=== PATIENT | female | born 1960 | race Caucasian/White ===

== ENCOUNTER → 2016-06-11 | Outpatient (CLI) | payer OTHER, MEDICARE ==
[2015-12-26 10:13] VITALS: BP 115/82
[~2016-06-11] MED LIST: ALBU2.5V13 NEB; ATOR40TA59 PO; BIOT25005 PO; BUPR1PAT2 TP; CYCL10TA2 PO; DICL75TA PO; DOCU-27 PO; DOCU100C PO; DULO30CA2 PO; ESTR1TAB15 PO; FLUT1DIS3 IH; FURO20TA3 PO; GABA-585 PO; HYDR-2762 PO; IPRA4AER IH; OMEP40CA5 PO; OXYC-244 PO; OXYC-250 PO; OXYC-323 PO; PARO20TA2 PO; PARO30TA2 PO; POTA20TA4 PO; PREG150C PO; PREG50CA PO; SENN1TAB70 PO; TIZA4CAP3 PO; TRAM50TA PO; ZOLP10TA PO; ZOLP10TA4 PO
[2016-06-11 12:23] LABS: CALCIUM 8.9 mg/dL (8.5-10.1); CREATININE 0.7 mg/dL (0.6-1.0); GFR 86.6; MAGNESIUM 2.2 mg/dL (1.8-2.4); POTASSIUM 4.5 mmol/L (3.5-5.1)
--- NOTE | 2016-06-13 10:39 | RAD ---
Exam: PA and lateral chest radiograph History: COPD, sweating, hyperlipidemia. Comparison: 02/06/2016. Findings: Cardiomediastinal silhouette is within normal limits for size. Bilateral lung mancera are free of focal infiltrate. No pleural effusion is seen. Cervicothoracic junction demonstrates spinal fusion hardware. Impression: No acute cardiopulmonary process.
== END | disposition home or self-care (01) ==
LOC: RAD 11:43
PROVIDERS: ATTEND Internal Medicine Cardiovascular Disease
DX: I10 Essential (primary) hypertension (principal); I51.89 Other ill-defined heart diseases; E78.2 Mixed hyperlipidemia; J44.9 Chronic obstructive pulmonary disease, unspecified
CPT/HCPCS: 36415; 71020; 80048; 83735; 86141

== ENCOUNTER → 2016-11-04 | Outpatient (CLI) | payer OTHER, MEDICARE ==
[2015-12-26 10:13] VITALS: BP 115/82
[~2016-11-04] MED LIST changes: -ALBU2.5V13 NEB; +ALBU2.5V14 NEB; -PARO20TA2 PO; +PARO20TA3 PO; -PARO30TA2 PO; +PARO30TA3 PO
--- NOTE | 2016-11-04 16:17 | RAD ---
Indication chronic pain. AP oblique and lateral views of both feet were obtained. Views of the right foot demonstrate normal mineralization. No acute finding is seen. There are no significant degenerative changes. Views of the left foot also demonstrate normal mineralization. No significant degenerative changes are seen and no acute finding is apparent IMPRESSION: Normal plain films of both feet
--- NOTE | 2016-11-04 16:29 | RAD ---
Indication chronic pain. AP oblique and lateral views of both hands were obtained. Views of the left hand demonstrate normal bony mineralization. Significant degenerative changes are not seen. No definite erosions are seen. Views of the right hand also appear unremarkable showing no evidence of significant degenerative change or erosions. No acute finding is seen. IMPRESSION: Normal plain films of the hands
== END | disposition home or self-care (01) ==
LOC: RAD 14:25
PROVIDERS: ATTEND Internal Medicine Cardiovascular Disease
DX: M25.542 Pain in joints of left hand (principal); M25.541 Pain in joints of right hand; G89.29 Other chronic pain; R53.1 Weakness
CPT/HCPCS: 73130; 73630

== ENCOUNTER → 2017-02-20 | Outpatient (CLI) | payer OTHER, MEDICARE ==
[2015-12-26 10:13] VITALS: BP 115/82
[~2017-02-20] MED LIST changes: -BIOT25005 PO; +BIOT25006 PO; -BUPR1PAT2 TP; +BUPR1PAT8 TP; +DOCU-109 PO; +DOCU-150 PO; -DOCU-27 PO; -DOCU100C PO; -OXYC-244 PO; -OXYC-250 PO; +OXYC-327 PO; +OXYC-328 PO
[2017-02-20 13:40] LABS: BASO % 0 % (0-3); EOS % 0 % (0-3); HEMATOCRIT 44.6 % (36.0-47.0); LYMPH # 2.3 x10^3/uL (1.0-4.8); LYMPH % 27 % (24-48); MEAN CORPUSCULAR HEMOGLOBIN 32 pg (25-35); MEAN CORPUSCULAR HGB CONC 34 g/dL (31-37); MEAN CORPUSCULAR VOLUME 96 fL (79-100); MONO % 8 % (0-9); NEUT % 65 % (31-73); PLATELET COUNT 292 x10^3/uL (140-400); RED BLOOD COUNT 4.65 x10^6/uL (3.50-5.40); RED CELL DISTRIBUTION WIDTH 14.5 % (11.5-14.5); WHITE BLOOD COUNT 8.6 x10^3/uL (4.0-11.0)
[2017-02-20 13:58] LABS: ALBUMIN 3.8 g/dL (3.4-5.0); ALBUMIN/GLOBULIN RATIO 0.9 (1.0-1.7); CALCIUM 9.6 mg/dL (8.5-10.1); CREATININE 0.8 mg/dL (0.6-1.0); GFR 74.2; POTASSIUM 4.4 mmol/L (3.5-5.1); TOTAL BILIRUBIN 0.5 mg/dL (0.2-1.0); TOTAL PROTEIN 8.2 g/dL (6.4-8.2)
[2017-02-20 13:59] LABS: CHOLESTEROL/HDL RATIO 2.4
== END | disposition home or self-care (01) ==
LOC: LAB 13:20
PROVIDERS: ATTEND Internal Medicine Cardiovascular Disease
DX: I51.89 Other ill-defined heart diseases (principal); E78.2 Mixed hyperlipidemia; R00.2 Palpitations
CPT/HCPCS: 36415; 80053; 80061; 85025; 86141

== ENCOUNTER → 2017-12-02 | Outpatient (CLI) | payer MEDICARE, MEDICAID ==
[2017-12-02] MEDS: GADOBUTROL 7.5 MMOL/7.5 ML VIAL IV (15:20)
== END | disposition home or self-care (01) ==
LOC: MRI 14:12
DX: M51.36 Other intervertebral disc degeneration, lumbar region (principal); M48.07 Spinal stenosis, lumbosacral region; E78.2 Mixed hyperlipidemia; I10 Essential (primary) hypertension; E11.9 Type 2 diabetes mellitus without complications
CPT/HCPCS: 72158; A9585

== ENCOUNTER → 2018-02-16 | Outpatient (CLI) | payer MEDICARE, MEDICAID ==
[2015-12-26 10:13] VITALS: BP 115/82
--- NOTE | 2018-02-16 16:26 | RAD ---
3 views left ankle study Clinical indications: Patient has fallen multiple times starting at the end of December 2017. Left ankle pain. FINDINGS: Medial soft tissue swelling is seen. No acute fracture or dislocation or osteolytic process is evident. The mortise ankle joint is intact. IMPRESSION: No acute fracture. Electronically signed by: Sabino Mckinney MD (02/16/2018 4:23 PM) [facility]
== END | disposition home or self-care (01) ==
LOC: RAD 09:56
PROVIDERS: ATTEND Anesthesiology Pain Medicine
DX: R22.42 Localized swelling, mass and lump, left lower limb (principal); I10 Essential (primary) hypertension; E11.9 Type 2 diabetes mellitus without complications; J44.9 Chronic obstructive pulmonary disease, unspecified; Z90.710 Acquired absence of both cervix and uterus; Z91.81 History of falling
CPT/HCPCS: 73610

== ENCOUNTER → 2018-02-20 | Outpatient (CLI) | payer MEDICARE, MEDICAID ==
[2015-12-26 10:13] VITALS: BP 115/82
[~2018-02-20] MED LIST changes: +BARIUM SULFATE 60% 355 ML SUSP PO ONE
--- NOTE | 2018-02-20 11:46 | RAD ---
Small bowel series, 02/20/2018: HISTORY: Diarrhea The preliminary abdominal image demonstrates a nonspecific gas pattern. Surgical clips in the right upper quadrant suggesting previous cholecystectomy. Lower pelvic calcifications are probably phleboliths. Serial digital images and fluoroscopic spot films were obtained following oral ingestion of liquid barium. 0.5 minutes of fluoroscopy time was utilized. 3 fluoroscopic spot images were recorded. The small bowel loops are of normal caliber with no evidence of thickening of their folds. There is normal transit of the barium through the small bowel into the colon. The terminal ileum is unremarkable. IMPRESSION: No significant small bowel abnormality is detected. Electronically signed by: Piyush Redman MD (02/20/2018 11:43 AM) [facility]
== END | disposition home or self-care (01) ==
LOC: RAD 07:38
PROVIDERS: ATTEND Internal Medicine Gastroenterology
DX: R19.7 Diarrhea, unspecified (principal); E78.2 Mixed hyperlipidemia; I10 Essential (primary) hypertension; E11.9 Type 2 diabetes mellitus without complications; J44.9 Chronic obstructive pulmonary disease, unspecified; Z87.891 Personal history of nicotine dependence; Z90.710 Acquired absence of both cervix and uterus
CPT/HCPCS: 74250

== ENCOUNTER 2018-02-27 15:05 | Emergency (ER) | payer MEDICARE, MEDICAID ==
[~2018-02-27] VITALS: Ht 170.2 cm; Wt 73.9 kg
[~2018-02-27 15:05] MED LIST changes: -BARIUM SULFATE 60% 355 ML SUSP PO ONE
[2018-02-27] MEDS ORDERED: DEXAMETHASONE SOD PHOS 20 MG/5 ML VIAL. IM ONE (16:15)
[2018-02-27] MEDS ORDERED: diazePAM 5 MG TABLET PO ONE (16:15)
[2018-02-27] MEDS ORDERED: MORPHINE SULFATE 10 MG/ML VIAL. IM ONE (16:15)
[2018-02-27] MEDS ORDERED: KETOROLAC 60 MG/2 ML INJ. IM ONE (16:15)
[2018-02-27] MEDS ORDERED: DEXAMETHASONE SOD PHOS 20 MG/5 ML VIAL. IV ONE (16:30)
[2018-02-27] MEDS ORDERED: MORPHINE SULFATE 10 MG/ML VIAL. IV ONE (16:30)
[2018-02-27] MEDS ORDERED: KETOROLAC 30 MG/ML VIAL. IV ONE (16:30)
--- NOTE | 2018-02-27 16:52 | PHYS DOC ---
Past Medical History Past Medical History: COPD, Other Additional Past Medical Histor: LIVER(?), MASS ON KIDNEY(?) Past Surgical History: Cholecystectomy, , Other Additional Past Surgical Histo: HERNIA, LOWER BACKx2,NECKx2/FUSION,LUNG BIOPSY( L),CTR BILAT,BI ELBOW Alcohol Use: None Drug Use: None Adult General Chief Complaint Chief Complaint: CHEST PAIN HPI HPI Patient is a 58 year old female with a history of chronic back pain, COPD, who presents today complaining of 9 out of 10 exacerbation of chronic back pain, patient states the pain radiates from her low back into her lower extremities. Patient denies any known injury Patient states this is chronic and she follows up with the pain clinic. She states she is on oxycodone and does not have enough medications to take her until next week. She is requesting something for pain in the ED as well as for home use, she states if we do not give her any pain medicines for home use she will return in a few days. Patient somehow told the nurses she has chest pain for 2 years on my exam patient denies chest pain she states she is here for chronic back pain and request for medication refill. Review of Systems Review of Systems Constitutional: Denies fever or chills [] Eyes: Denies change in visual acuity, redness, or eye pain [] HENT: Denies nasal congestion or sore throat [] Respiratory: Denies cough or shortness of breath [] Cardiovascular: No additional information not addressed in HPI [] GI: Denies abdominal pain, nausea, vomiting, bloody stools or diarrhea [] : Denies dysuria or hematuria [] Musculoskeletal: Reports chronic low back pain radiating to bilateral lower extremities Integument: Denies rash or skin lesions [] Neurologic: Denies headache, focal weakness or sensory changes [] All other systems were reviewed and found to be within normal limits, except as documented in this note. Current Medications Current Medications Current Medications Medications (Trade) Dose Ordered Sig/Stephanie Start Time Stop Time Status Last Admin Dose Admin Dexamethasone Sodium Phosphate (Decadron) 10 mg 1X ONCE 02/27/18 16:30 02/27/18 16:33 DC 02/27/18 16:48 10 MG Diazepam (Valium) 5 mg 1X ONCE 02/27/18 16:15 02/27/18 16:16 DC 02/27/18 16:46 5 MG Ketorolac Tromethamine (Toradol 30mg Vial) 30 mg 1X ONCE 02/27/18 16:30 02/27/18 16:33 DC 02/27/18 16:51 30 MG Ketorolac Tromethamine (Toradol Im) 60 mg 1X ONCE 02/27/18 16:15 02/27/18 16:16 Cancel Morphine Sulfate (Morphine Sulfate) 5 mg 1X ONCE 02/27/18 16:30 02/27/18 16:33 DC 02/27/18 16:54 5 MG Allergies Allergies Allergies Coded Allergies Type Severity Reaction Last Updated Verified adhesive Allergy Intermediate Rash 08/30/15 Yes adhesive tape Allergy Intermediate 12/26/15 Yes Physical Exam Physical Exam Constitutional: Well developed, well nourished, no acute distress, non-toxic appearance. [] HENT: Normocephalic, atraumatic, bilateral external ears normal, oropharynx moist, no oral exudates, nose normal. [] Eyes: PERRLA, EOMI, conjunctiva normal, no discharge. [] Neck: Normal range of motion, no tenderness, supple, no stridor. [] Cardiovascular:Heart rate regular rhythm, no murmur [] Lungs & Thorax: Bilateral breath sounds clear to auscultation [] Abdomen: Bowel sounds normal, soft, no tenderness, no masses, no pulsatile masses. [] Skin: Warm, dry, no erythema, no rash. [] Back: No tenderness, no CVA tenderness. [] Extremities: Diffuse paraspinal muscle tenderness to bilateral lumbar spine, no midline lumbar spine tenderness, no cyanosis, no clubbing, ROM intact, no edema. Positive bilateral straight leg raises. Neurologic: Alert and oriented X 3, normal motor function, normal sensory function, no focal deficits noted. [] Psychologic: Affect normal, judgement normal, mood normal. [] Current Patient Data Vital Signs Vital Signs Date Time Temp Pulse Resp B/P (MAP) Pulse Ox O2 Delivery O2 Flow Rate FiO2 02/27/18 16:56 77 14 140/73 (95) 93 Room Air 02/27/18 15:36 98.0 98.0 EKG EKG [] Radiology/Procedures Radiology/Procedures [] Course & Med Decision Making Course & Med Decision Making Pertinent Labs and Imaging studies reviewed. (See chart for details) This is a 58-year-old female patient presented to the ED today complaining of chronic low back pain, no known injury, no cauda equina syndrome symptoms. Patient was requesting we refill her prescription for oxycodone which I told her we will not refill considering she follows up with the pain clinic and she still had a couple pills in her bottle. She states she'll be back in the ED in a few days. She follows up with the pain clinic. Requested patient to contact the pain clinic and follow-up with them for medication refills. She was discharged with cyclobenzaprine and diclofenac. Dragon Disclaimer Dragon Disclaimer This electronic medical record was generated, in whole or in part, using a voice recognition dictation system. Departure Departure Impression: Primary Impression: Lumbar radiculopathy Additional Impression: Chronic low back pain Disposition: HOME, SELF-CARE Condition: STABLE Referrals: LIANNE RICCI MD (PCP) follow up next week Patient Instructions: Back Pain, Adult, Sciatica, [id number] Additional Instructions: You were evaluated in the emergency room, we highly recommend you contact your pain clinic and follow-up with them for refill of your narcotic pain medicines refill. Take the prescribed medications as needed for pain. Come back to the ED at any point symptoms worsen. Scripts Cyclobenzaprine Hcl (CYCLOBENZAPRINE HCL) 10 Mg Tablet 1 TAB PO TID, #30 TAB Prov: BHAVYA ISLAS APRN 02/27/18 Diclofenac Sodium (DICLOFENAC SODIUM) 50 Mg Tablet.dr 1 TAB PO BID, #20 TAB 0 Refills Prov: BHAVYA ISLAS APRN 02/27/18 Problem Qualifiers Additional Impression: Chronic low back pain Back pain laterality: bilateral Sciatica presence: with sciatica Sciatica laterality: bilateral sciatica Qualified Codes: M54.42 - Lumbago with sciatica, left side; M54.41 - Lumbago with sciatica, right side; G89.29 - Other chronic pain BHAVYA ISLAS APRN Feb 27, 2018 16:52
[2018-02-27] MEDS ORDERED: CYCL10TA2 PO (17:17)
[2018-02-27] MEDS ORDERED: DICL50TA4 PO (17:17)
[2018-02-27 18:20] VITALS: BP 107/62
--- NOTE | 2018-02-28 09:31 | EKG ---
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
[2018-02-28] MEDS ORDERED: OXYC1TAB8 PO (13:51)
== END 2018-02-27 18:20 | disposition home or self-care (01) ==
LOC: ER 15:05
DX: M54.16 Radiculopathy, lumbar region (principal); G89.29 Other chronic pain; M54.41 Lumbago with sciatica, right side; M54.42 Lumbago with sciatica, left side; R07.89 Other chest pain; J44.9 Chronic obstructive pulmonary disease, unspecified; Z90.49 Acquired absence of other specified parts of digestive tract; Z98.890 Other specified postprocedural states; Z98.1 Arthrodesis status; Z88.8 Allergy status to other drugs, medicaments and biological substances
CPT/HCPCS: 93005; 96374; 96375; 99284; J1100; J1885; J2270

== ENCOUNTER 2018-02-28 12:31 | Emergency (ER) | payer MEDICARE, MEDICAID ==
[~2018-02-28] VITALS: Ht 170.2 cm; Wt 73.9 kg
[~2018-02-28 12:31] MED LIST changes: +DICL50TA4 PO
[2018-02-28 12:57] VITALS: BP 123/73
--- NOTE | 2018-02-28 13:47 | PHYS DOC ---
Past Medical History Past Medical History: COPD, Other Additional Past Medical Histor: LIVER(?), MASS ON KIDNEY(?) Past Surgical History: Cholecystectomy, , Other Additional Past Surgical Histo: HERNIA, LOWER BACKx2,NECKx2/FUSION,LUNG BIOPSY( L),CTR BILAT,BI ELBOW Alcohol Use: None Drug Use: Marijuana Adult General Chief Complaint Chief Complaint: Neck Pain HPI HPI 58-year-old female presents to ER via POV for complaints of ongoing chronic pain in her lower back and buttock. Patient was seen in the ER yesterday for similar symptoms denying any acute changes. Patient denies any incontinence of bowel or bladder, saddle anesthesia, or inability to ambulate. Pt denies falls/ injury since ER visit yest. Pt denies use of walker or cane. Patient reports she had spoken to her pain management doctor who she has a pain contract with Dr. Herrera and was advised to come to the ER for "pain shot". During initial encounter with patient she is repositioning herself on ER chair without assistance. Patient is tearful stating she was given Rxs yesterday while in ER which she hasn't filled. She reports she just came back for another "shot". Pt reports she took her oxycodone 7.5/325 approx. 30 min. [employer]ISON [employer] and also some of her Rx'd tizanidine and antiinflammatory (uncertain of name). Pt during this initial encounter stated she was going to out of medicine and would need Rx for her oxycodone as she doesn't have appt with Dr. Herrera until next wk- initially saying appt was Friday then changed that to . Pt during initial encounter was able to ambulate from ER cart to get her oxycodone bottle from her purse in order to show that she was almost out of medication. She had 3 pills left. Again voicing concerns she would run out of medication prior to her seeing Dr. Herrera and that Dr. Herrera couldn't call her in a Rx. Pt denies any fever/chills, urinary sxs, N/V/D, swelling in extremities, or numbness in legs. Pt reports BMs have been regular denying any change in bowel pattern or dark tarry bloody stools. In records pt received Toradol, decadron, valium, and morphine while in ER yesterday afternoon- along with Rxs for Volteran and Flexeril which were not filled. Review of Systems Review of Systems Constitutional: Denies fever or chills. Denies weakness/fatigue Eyes: Denies change in visual acuity, redness, or eye pain [] HENT: Denies nasal congestion or sore throat [] Respiratory: Denies cough or shortness of breath [] Cardiovascular: Denies CP/palp. GI: Denies abdominal pain, nausea, vomiting, bloody stools or diarrhea. Denies saddle anesth, change in bowel pattern, or constipation : Denies dysuria or hematuria. Denies incontinence Musculoskeletal: Reports chronic lower back pain into bilat upper buttocks- reporting pain is chronic with no acute changes Integument: Denies rash, swelling, redness, or skin lesions [] Neurologic: Denies headache, focal weakness or sensory changes. Denies numbness All other systems were reviewed and found to be within normal limits, except as documented in this note. Allergies Allergies Allergies Coded Allergies Type Severity Reaction Last Updated Verified adhesive Allergy Intermediate Rash 08/30/15 Yes adhesive tape Allergy Intermediate 12/26/15 Yes Physical Exam Physical Exam Constitutional: Well developed, well nourished, mild distress and anxious, non- toxic appearance. Clear speech HENT: Normocephalic, atraumatic, bilateral external ears normal, oropharynx moist, no oral exudates, nose normal. [] Eyes: PERRLA, EOMI, conjunctiva normal, no discharge. [] Neck: Normal range of motion, full ROM with diffuse tenderness on palp. reporting pain is chronic no acute change- trachea midline-, supple, no gross adenopathy Cardiovascular:Heart rate regular rhythm, no murmur [] Lungs & Thorax: Bilateral breath sounds clear to auscultation. Resp. equal/ nonlabored Abdomen: Bowel sounds normal, soft, no tenderness, no masses, no pulsatile masses. [] Skin: Warm, dry, no erythema, no rash. [] Back: Tender to palp. diffusely in lower back w/no palp. deformity/swelling- full ROM and tenderness extends into bilat. upper buttocks, no midline spinal deformity, no CVA tenderness. [] Extremities: No tenderness, no cyanosis, no clubbing, ROM intact, no edema. [] Neurologic: Alert and oriented X 3, normal motor function, normal sensory function, no focal deficits noted. [] Psychologic: Anxious, judgement normal, no uncontrollable behavior. Denies SI Current Patient Data Vital Signs Vital Signs Date Time Temp Pulse Resp B/P (MAP) Pulse Ox O2 Delivery O2 Flow Rate FiO2 02/28/18 12:57 98.4 97 20 123/73 (90) 94 Room Air 98.4 EKG EKG [] Radiology/Procedures Radiology/Procedures [] Course & Med Decision Making Course & Med Decision Making With no acute change in pt's reports of chronic pain and no recent injury/falls no imaging obtained. Pt was comfortable with having no imaging as she multiple times verbalized she came to ER for "pain shot" again. During initial discussion pt was offered prednisone and lidoderm patch and as she had just taken her Rx'd oxycodone [employer]ISON TE[employer]ER discussed narcotics not being used as option while in ER. Pt when told this became rude demanding this provider leave her room and she be able to speak to the doctor in the ER. Attempts to further discuss tx options w/pt was halted by pt not wanting to talk further with this provider. So pt's case was discussed with Dr. Conklin who went to pt's room. Per Dr. Conklin plan will be to call Dr. Herrera pt's pain management doctor and discuss what it is she wants for pt as this is her 2nd trip to ER for pain medication. Pt agreed to allow this provider to further care for her after phone call made to Dr. Herrera. 1335: This provider spoke with Dr. Herrera via phone and discussed pt's case, ER visits, and [facility] records on pt with Rx on 02/19/18 and 01/09/18- both written thru Dr. Herrera's office. Dr. Herrera's requested pt be advised to fill Rxs provided yest. in ER and take those vs her other NSaids and muscle relaxer. Dr. Herrera's requested Rx for #10 oxycodone 7.5/325 which would provide enough until pt's scheduled appt. Dragon Disclaimer Dragon Disclaimer This electronic medical record was generated, in whole or in part, using a voice recognition dictation system. Departure Departure Impression: Primary Impression: Chronic low back pain Disposition: 01 HOME, SELF-CARE Condition: STABLE Referrals: LIANNE RICCI MD (PCP) Patient Instructions: Chronic Back Pain Additional Instructions: As discussed you need to follow-up with Dr. Herrera who should handle your chronic pain medications- with chronic pain you need to make sure you are monitoring the amount of medications you have at home so you don't run out of the medicine. If you are close to being out of medications call Dr. Huitron's office and have medications refilled from her. As all further narcotic prescriptions should be provided by your pain management. You were provided with prescriptions for Flexeril and Volteran which you should get filled for additional pain relief- take as directed. Scripts Oxycodone Hcl/Acetaminophen (OXYCODON-ACETAMINOPHEN 7.5-325) 1 Each Tablet 1 EACH PO PRN Q6HRS PRN for PAIN, #10 TAB 0 Refills Prov: SARAH ACOSTA APRN 02/28/18 SARAH ACOSTA APRN Feb 28, 2018 13:47
[2018-02-28] MEDS ORDERED: OXYC1TAB8 PO (13:51)
== END 2018-02-28 14:05 | disposition home or self-care (01) ==
LOC: ER 12:31
DX: G89.29 Other chronic pain (principal); M54.5 Low back pain; J44.9 Chronic obstructive pulmonary disease, unspecified; Z90.49 Acquired absence of other specified parts of digestive tract; Z98.1 Arthrodesis status; Z98.890 Other specified postprocedural states; Z88.8 Allergy status to other drugs, medicaments and biological substances
CPT/HCPCS: 99284

== ENCOUNTER 2018-06-11 20:36 | Emergency (ER) | payer MEDICARE, MEDICAID ==
[~2018-06-11] VITALS: Ht 170.2 cm; Wt 74.8 kg
[~2018-06-11 20:36] MED LIST changes: -HYDR-2762 PO; +HYDR-2765 PO; -OXYC-323 PO; -OXYC-327 PO; -OXYC-328 PO; +OXYC1TAB15 PO; +OXYC1TAB19 PO; +OXYC1TAB22 PO; +OXYC1TAB8 PO
[2018-06-11] MEDS ORDERED: KETOROLAC 30 MG/ML VIAL. IM ONE (21:15)
[2018-06-11] MEDS ORDERED: diazePAM 5 MG TABLET PO ONE (21:15)
[2018-06-11] MEDS ORDERED: oxyCODONE/APAP 10/325 1 TAB TABLET PO ONE (21:15)
[2018-06-11] MEDS ORDERED: MORPHINE SULFATE 4 MG/ML VIAL. IM ONE (21:30)
[2018-06-11] MEDS ORDERED: CYCL5TAB PO (22:38)
[2018-06-11 22:50] VITALS: BP 117/87
--- NOTE | 2018-06-12 00:04 | PHYS DOC ---
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 Pain is sharp severe right lateral low back radiates to the buttock no new other symptoms apparently she has baseline numbness in both arms and left leg she says that is unchanged there is no saddle anesthesia no bowel or bladder incontinence. She came in by ambulance because it was hard to walk. No blunt trauma she just twisted wrong in the car there was no accident of any kind Review of Systems Review of Systems Constitutional: Denies fever or chills [] Eyes: Denies change in visual acuity, redness, or eye pain [] HENT: Denies nasal congestion or sore throat [] Respiratory: Denies cough or shortness of breath [] Musculoskeletal: Neurologic: Denies headache, f Endocrine: Denies polyuria or polydipsia [] All other systems were reviewed and found to be within normal limits, except as documented in this note. Current Medications Current Medications Current Medications Medications (Trade) Dose Ordered Sig/Stephanie Start Time Stop Time Status Last Admin Dose Admin Diazepam (Valium) 5 mg 1X ONCE 06/11/18 21:15 06/11/18 21:16 DC 06/11/18 21:31 5 MG Ketorolac Tromethamine (Toradol 30mg Vial) 30 mg 1X ONCE 06/11/18 21:15 06/11/18 21:16 DC 06/11/18 21:31 30 MG Morphine Sulfate (Morphine Sulfate) 4 mg 1X ONCE 06/11/18 21:30 06/11/18 21:32 DC Oxycodone/ Acetaminophen (Percocet 10/325) 1 tab 1X ONCE 06/11/18 21:15 06/11/18 21:16 DC 06/11/18 21:30 1 TAB Allergies Allergies Allergies Coded Allergies Type Severity Reaction Last Updated Verified adhesive Allergy Intermediate Rash 08/30/15 Yes adhesive tape Allergy Intermediate 12/26/15 Yes Physical Exam Physical Exam Constitutional: Well developed, well nourished, mild distress, non-toxic appearance. [] HENT: Normocephalic, atraumatic, bilateral external ears normal, oropharynx moist, no oral exudates, nose normal. [] Eyes: PERRLA, EOMI, conjunctiva normal, no discharge. [] Neck: Normal range of motion, no tenderness, supple, no stridor. [] Cardiovascular:Heart rate regular rhythm, no murmur [] Lungs & Thorax: Bilateral breath sounds clear to auscultation [] Abdomen: Bowel sounds normal, soft, no tenderness, no masses, no pulsatile masses. [] Skin: Warm, dry, no erythema, no rash. [] Back: There is fairly focal tenderness noted in the right mid buttock area overlying the sciatic nerve Extremities: No tenderness, no cyanosis, no clubbing, ROM intact, no edema. [] Neurologic: Alert and oriented X 3, normal motor function,, no focal deficits noted. []Somewhat limited exam of bilateral lower extremities due to patient discomfort however distal strength does appear intact sensation is reduced to light touch left greater than right lower extremity which patient states is baseline Psychologic: Affect normal, judgement normal, mood normal. [] Current Patient Data Vital Signs Vital Signs Date Time Temp Pulse Resp B/P (MAP) Pulse Ox O2 Delivery O2 Flow Rate FiO2 06/11/18 22:50 82 16 117/87 (97) 97 Room Air 06/11/18 20:36 98.0 98.0 EKG EKG [] Radiology/Procedures Radiology/Procedures [] Course & Med Decision Making Course & Med Decision Making Pertinent Labs and Imaging studies reviewed. (See chart for details) []Low-back pain differential includes herniated disc versus muscular strain this was a fairly benign mechanism of injury she was treated in the ER with the above medications she actually felt better she was able to ambulate with a slightly antalgic gait only she says that is her baseline she'll be discharged in stable condition I did give her #5 Flexeril. Ronn Disclaimer Dragmansoor Disclaimer This electronic medical record was generated, in whole or in part, using a voice recognition dictation system. Departure Departure Impression: Primary Impression: Chronic low back pain Disposition: HOME, SELF-CARE Condition: STABLE Referrals: LIANNE RICCI MD (PCP) LOY ALVES MD Patient Instructions: Back Pain, Adult, [id number] Scripts Cyclobenzaprine Hcl (CYCLOBENZAPRINE HCL) 5 Mg Tablet 5 MG PO PRN TID PRN for PAIN, #5 TAB Prov: MORGAN CAPPS MD 06/11/18 MORGAN CAPPS MD Jun 12, 2018 00:04
== END 2018-06-11 22:54 | disposition home or self-care (01) ==
LOC: ER 20:36
DX: G89.29 Other chronic pain (principal); M54.5 Low back pain; J44.9 Chronic obstructive pulmonary disease, unspecified; F17.200 Nicotine dependence, unspecified, uncomplicated; Z98.890 Other specified postprocedural states; Z90.49 Acquired absence of other specified parts of digestive tract
CPT/HCPCS: 96372; 99283; J1885

== ENCOUNTER → 2018-09-15 | Outpatient (CLI) | payer MEDICARE, MEDICAID ==
[~2018-09-15] MED LIST changes: +CYCL5TAB PO
--- NOTE | 2018-09-15 15:56 | RAD ---
MRI Cervical Spine Without Contrast History: Cervical radiculitis, bilateral arm weakness, previous cervical fusion Technique: Multiplanar, multi sequential noncontrast MR imaging was performed of the cervical spine. Comparison: November 02, 2015 Findings: There is some motion degradation. There has been interval anterior cervical fusion C5, C6, C7 at which there is anterior metallic plate and screws. Exam does not accurately evaluate integrity of hardware. Interbody fusion at these levels is not apparent. Cervical vertebral body stature is maintained. Cervical cord caliber is within normal limits without convincing focal signal abnormality. AP alignment is within normal limits. There is increased mild to moderate degenerative disc disease C4-C5. There is mild C4-5 endplate edema likely reactive/degenerative in etiology. C2-C3: Spinal canal and neural foramina are adequate. C3-C4: Central canal is adequate about 12 mm. Neural foramina are adequate. C4-C5: There is disc osteophyte complex and bulge greater than previously. There is mild buckling of the ligamentum flavum. Central canal is narrowed to about 7 to 8 mm, overall increased. There is bilateral facet degenerative change. There is right uncovertebral degenerative change. There is probable at least mild narrowing of the right neural foramen, left neural foramen overall adequate. C5-C6: There are minimal posterior osteophytes. Central canal is narrowed to about 9 mm. There is facet degenerative change also uncovertebral osteophytes. Right neural foramen is likely adequate, probable [id number] narrowing of the left neural foramen. C6-C7: There are posterior osteophytes. Central canal is narrowed to about 8 to 9 mm also with left lateral recess stenosis. There is uncovertebral degenerative change bilaterally greater on the left contributing to fairly severe left and moderate to severe right neural foramina compromise. C7-T1: Spinal canal and neural foramina are adequate. T1-2: There is a minimal disc osteophyte complex and superimposed protrusion more eccentric to the far right lateral recess Interval, mild narrowing of the far right lateral recess. Impression: 1. There has been anterior cervical fusion C5, C6, C7, interbody fusion not apparent at these levels. 2. There is increased spinal stenosis about 7 mm at C4-5. There is mild spinal stenosis C5-6 and C6-7 as described. There is increased mild narrowing of the far right lateral recess at T1-T2. 3. Uncovertebral degenerative change contributes to fairly severe left greater than right C6-7 neural foramina compromise. 4. There has been progression of C4-5 degenerative disc disease, mild endplate edema at this level likely reactive/degenerative in etiology. Electronically signed by: Bunny Rucker MD (09/15/2018 3:53 PM) [facility]
== END | disposition home or self-care (01) ==
LOC: MRI 14:09
PROVIDERS: ATTEND Nurse Practitioner Family
DX: M50.121 Cervical disc disorder at C4-C5 level with radiculopathy (principal); M48.02 Spinal stenosis, cervical region; M25.78 Osteophyte, vertebrae
CPT/HCPCS: 72141

== ENCOUNTER 2019-10-24 14:55 | Emergency (ER) | payer MEDICARE, MEDICAID ==
[~2019-10-24] VITALS: Ht 170.2 cm; Wt 75.0 kg
[~2019-10-24 14:55] MED LIST changes: +OMEP40CA45 PO; -OMEP40CA5 PO; -PREG50CA PO; +PREG50CA91 PO
[2019-10-24 15:15] VITALS: BP 128/63
[2019-10-24] MEDS ORDERED: CLIN300C8 PO (15:41)
[2019-10-24] MEDS ORDERED: FLUORESCEIN OPHTH TEST STRIP. ONE (15:41)
[2019-10-24] MEDS ORDERED: TETRACAINE 0.5% OPHTH SOLUTION 4ML BOTTLE. ONE (15:41)
[2019-10-24] MEDS ORDERED: VALA10005 PO (15:41)
[2019-10-24] MEDS ORDERED: HYDR-3164 PO (15:41)
--- NOTE | 2019-10-24 15:41 | PHYS DOC ---
Past Medical History Past Medical History: COPD, Other Additional Past Medical Histor: LIVER(?), MASS ON KIDNEY(?), CHRONIC BACK PAIN Past Surgical History: Cholecystectomy, , Other Additional Past Surgical Histo: HERNIA, LOWER BACKx2,NECKx2/FUSION,LUNG BIOPSY(L),CTR BILAT,BI ELBOW Smoking Status: Current Every Day Smoker Alcohol Use: Rarely Drug Use: Marijuana General Adult EDM: Chief Complaint: EYE PROBLEMS HPI: HPI: Patient is a 59-year-old female who presents secondary to a rash on her nose and around her left eye and on her forehead. 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 She states that her family doctor "ruled out" shingles. [] Review of Systems: Review of Systems: Constitutional: Denies fever or chills. [] Eyes: Denies change in visual acuity. [] HENT: Denies nasal congestion or sore throat. [] Respiratory: Denies cough or shortness of breath. [] Cardiovascular: Denies chest pain or edema. [] GI: Denies abdominal pain, nausea, vomiting, bloody stools or diarrhea. [] : Denies dysuria. [] Musculoskeletal: Denies back pain or joint pain. [] Integument: Per HPI. [] Neurologic: Denies headache, focal weakness or sensory changes. [] Endocrine: Denies polyuria or polydipsia. [] Lymphatic: Denies swollen glands. [] Psychiatric: Denies depression or anxiety. [] Heart Score: Risk Factors: Risk Factors: DM, Current or recent (<one month) smoker, HTN, HLP, family history of CAD, obesity. Risk Scores: Score 0 - 3: 2.5% MACE over next 6 weeks - Discharge Home Score 4 - 6: 20.3% MACE over next 6 weeks - Admit for Clinical Observation Score 7 - 10: 72.7% MACE over next 6 weeks - Early Invasive Strategies Allergies: Allergies: Allergies Coded Allergies Type Severity Reaction Last Updated Verified adhesive Allergy Intermediate Rash 08/30/15 Yes adhesive tape Allergy Intermediate 12/26/15 Yes Physical Exam: PE: Constitutional: Well developed, well nourished, mild distress, non-toxic appearance. [] HENT: Normocephalic, atraumatic, bilateral external ears normal, oropharynx moist, no oral exudates, nose normal. [] Eyes: Left eye was inspected I did not appreciate any lesions. There was no conjunctival injection, I stained the left eye with fluorescein and there were n o dendritic lesions or abrasions of any kind that I could see in that left eye [] Neck: Normal range of motion, no tenderness, supple, no stridor. [] Cardiovascular:Heart rate regular rhythm, no murmur [] Lungs & Thorax: Bilateral breath sounds clear to auscultation [] Abdomen: Bowel sounds normal, soft, no tenderness, no masses, no pulsatile masses. [] Skin: She has multiple erythematous lesions in the left periocular area and the left side of the forehead there is also one on the bridge of the nose the one on the forehead has some underlying induration I was able to express some purulent material out of this.. [] Back: No tenderness, no CVA tenderness. [] Extremities: No tenderness, no cyanosis, no clubbing, ROM intact, no edema. [] Neurologic: Alert and oriented X 3, normal motor function, normal sensory function, no focal deficits noted. [] Psychologic: Affect normal, judgement normal, mood normal. [] Current Patient Data: Vital Signs: Vital Signs Date Time Temp Pulse Resp B/P (MAP) Pulse Ox O2 Delivery O2 Flow Rate FiO2 10/24/19 15:15 98.5 87 18 128/63 (84) 94 Room Air 98.5 EKG: EKG: [] Radiology/Procedures: Radiology/Procedures: [] Course & Med Decision Making: Course & Med Decision Making Pertinent Labs and Imaging studies reviewed. (See chart for details) [ED course: Evaluation reveals a 59-year-old female with what appears to be staph cellulitis however I am concerned that there may have been an underlying shingles outbreak as she did describe blisters to the area. We will go ahead and start her on high-dose clindamycin and Valtrex] Ronn Disclaimer: Ronn Disclaimer: This electronic medical record was generated, in whole or in part, using a voice recognition dictation system. Departure Departure Impression: Primary Impression: Shingles of eyelid Additional Impression: Cellulitis and abscess of face Disposition: 01 HOME, SELF-CARE Condition: STABLE Referrals: LIANNE RICCI MD (PCP) Bob ART MD I would like for you to follow with Dr. Art our eye doctor this week for recheck Patient Instructions: Cellulitis, Healthcare-Associated MRSA, Shingles Additional Instructions: Follow with your primary care physician this week for recheck. Scripts Valacyclovir Hcl (VALTREX) 1,000 Mg Tablet 1 TAB PO TID for shingles, #30 TAB Prov: FIDEL FARRELL DO 10/24/19 Hydrocodone/Apap 5-325 (NORCO 5-325 TABLET) 1 Each Tablet 1 TAB PO PRN Q6HRS PRN for PAIN, #15 TAB 0 Refills Prov: FIDEL FARRELL DO 10/24/19 Clindamycin Hcl (CLINDAMYCIN HCL) 300 Mg Capsule 1 CAP PO TID for Infection, #30 CAP Prov: FIDEL FARRELL DO 10/24/19 FIDEL FARRELL DO October 24, 2019 15:41
[2019-10-24] MEDS ORDERED: TETRACAINE 0.5% OPHTH SOLUTION 4ML BOTTLE. OS ONE (15:45)
[2019-10-24] MEDS ORDERED: FLUORESCEIN OPHTH TEST STRIP. OS ONE (15:45)
== END 2019-10-24 16:05 | disposition home or self-care (01) ==
LOC: ER 14:55
DX: B02.39 Other herpes zoster eye disease (principal); L03.211 Cellulitis of face; J44.9 Chronic obstructive pulmonary disease, unspecified; G89.29 Other chronic pain; F17.200 Nicotine dependence, unspecified, uncomplicated; Z88.8 Allergy status to other drugs, medicaments and biological substances
CPT/HCPCS: 99283